=== PATIENT | male | born 1965 | race African-American/Black ===

== ENCOUNTER 2019-09-17 20:04 | Inpatient (IN) | payer OTHER, SELFPAY ==
--- OUTSIDE RECORDS SUMMARY | 2019-09-17 20:07 | XMS REPORT | Continuity of Care Document ---
:1965 Author Organization [facility] t Address [address] [place] [address] [place] [id number] Care Team Providers Name Role Phone Unavailable Unavailable Unavailable Problems This patient has no known problems. Allergies, Adverse Reactions, Alerts This patient has no known allergies or adverse reactions. Medications This patient has no known medications. Procedures This patient has no known procedures. Encounters Start End Encounter Admission Attending Care Care Encounter Source Date/Time Date/Time Type Type Clinicians Facility Department ID 2017-03-06 2017-03-06 Outpatient [facility] [id number] [address] [place] 02:15:01 02:15:01 [facility] Office 2016-10-02 2016-10-02 Outpatient [facility] [id number] [address] [place] [address] 00:00:00 00:00:00 [facility] Results This patient has no known results.
[2019-09-17] MEDS ORDERED: CLOPIDOGREL 75 MG TABLET ONE (20:48)
[2019-09-17 20:51] LABS: Absolute Lymphocytes (CBC) 2.6 K/uL (0.7-4.9); Basophils % 1.3 % (0-1.3); Hematocrit 39.4 % (39.6-49.0); Lymphocytes % 37.7 % (15.3-44.8); MPV 8.8 fL (7.6-11.3); RBC Red Blood Cell Count 5.31 M/uL (4.33-5.43)
[2019-09-17 20:52] LABS: Protime INR 1.1
--- NOTE | 2019-09-17 21:01 | RAD REPORT ---
EXAM DESCRIPTION: RAD - Chest Single View - 09/17/2019 8:37 pm CLINICAL HISTORY: CHEST PAIN Chest pain. COMPARISON: No comparisons FINDINGS: Portable technique limits examination quality. The lungs are grossly clear. The heart is normal in size. No displaced fractures. IMPRESSION: No acute intrathoracic process suspected.
[2019-09-17 21:02] LABS: ALT/SGPT 19 U/L (12-78); AST/SGOT 15 U/L (15-37); Albumin 3.7 g/dL (3.4-5.0); Alkaline Phosphatase 83 U/L (45-117); BUN Blood Urea Nitrogen 12 mg/dL (7-18); Bicarbonate 27 mmol/L (21-32); Bilirubin Direct < 0.1 mg/dL (0-0.2); Bilirubin Total 0.2 mg/dL (0.2-1.0); Glucose Level 79 mg/dL (74-106); Magnesium 2.4 mg/dL (1.8-2.4); NT PRO-BNP 40 pg/mL (<125); Potassium 4.3 mmol/L (3.5-5.1); Protein, Total 7.7 g/dL (6.4-8.2); Sodium Level 139 mmol/L (136-145); Troponin (Emerg Dept Use Only) < 0.02 ng/mL (0.0-0.045)
--- NOTE | 2019-09-17 21:21 | EDPHYS ---
Physician Documentation [facility] Name: Gee Mills Age: 53 yrs Sex: Male : 1965 Arrival Date: 09/17/2019 Time: 20:11 Bed 5 Private MD: ED Physician Nando Bello HPI: 09/16 20:22 This 53 yrs old Black Male presents to ER via Unassigned with complaints of Chest Pain. cp 20:22 The patient or guardian reports chest pain that is located primarily in the substernal cp area. 20:22 Onset: suddenly, today. The pain does not radiate. The chest pain is described as worse cp than previous heart attack pain. Duration: The patient or guardian reports a single episode, that is now resolved. Severity of pain: in the emergency department the pain has resolved. EMS care prior to arrival includes: nitroglycerin, x 2. Patient reports history of ND due to drug use in past. No stents placed, no history of CABG. Historical: - Allergies: 20:11 Aspirin; jb4 - Home Meds: 20:11 amlodipine 10 mg tab [Active]; Hydrochlorothiazide Oral [Active]; jb4 - PMHx: 20:11 Hypertension; Blood clots in the right leg; C5 and C5 fractures; jb4 - PSHx: 20:11 right hand; jb4 - Immunization history:: Adult Immunizations up to date. - Social history:: Smoking status: Patient reports the use of cigarette tobacco products, smokes one-half pack cigarettes per day, Patient/guardian denies using alcohol, street drugs, but used to use street drugs. ROS: 20:25 Cardiovascular: Positive for chest pain, Negative for edema, palpitations. cp 20:25 Eyes: Negative for injury, pain, redness, and discharge. cp 20:25 Constitutional: Negative for body aches, chills, poor PO intake. 20:25 ENT: Negative for ear pain, sore throat, difficulty swallowing, difficulty handling secretions. 20:25 Neck: Negative for pain with movement, pain at rest, stiffness. 20:25 Respiratory: Negative for cough, shortness of breath, wheezing. 20:25 Abdomen/GI: Negative for abdominal pain, nausea, vomiting, and diarrhea. 20:25 Back: Negative for radiated pain. 20:25 Neuro: Negative for altered mental status, dizziness, syncope, weakness. 20:25 All other systems are negative. Exam: 20:23 ECG was reviewed by the Attending Physician. cp 20:28 Constitutional: The patient appears in no acute distress, alert, awake, cp non-diaphoretic, non-toxic, well developed, well nourished. 20:28 Head/Face: Normocephalic, atraumatic. cp 20:28 Eyes: Periorbital structures: appear normal, Conjunctiva: normal, no exudate, no injection, Sclera: no appreciated abnormality, Lids and lashes: appear normal, bilaterally. 20:28 ENT: External ear(s): are unremarkable, Nose: is normal, Mouth: Lips: moist, Oral mucosa: pink and intact, moist, Posterior pharynx: is normal, airway is patent, no erythema, no exudate. 20:28 Neck: ROM/movement: is normal, is supple, without pain, no range of motions limitations, no nuchal rigidity. 20:28 Chest/axilla: Inspection: normal, Palpation: crepitus, is not appreciated, tenderness, is not appreciated. 20:28 Cardiovascular: Rate: normal, Rhythm: regular, Pulses: Pulses are 2+ in right radial artery and left radial artery. Edema: is not appreciated, JVD: is not appreciated. 20:28 Respiratory: the patient does not display signs of respiratory distress, Respirations: normal, no use of accessory muscles, no retractions, labored breathing, is not present, Breath sounds: are clear throughout, no decreased breath sounds, no stridor, no wheezing. 20:28 Abdomen/GI: Inspection: abdomen appears normal, Bowel sounds: active, all quadrants, Palpation: abdomen is soft and non-tender, in all quadrants. 20:28 Back: pain, is absent, ROM is normal. 20:28 Neuro: Orientation: is normal, Mentation: is normal, Motor: moves all fours, strength is normal, Sensation: is normal. Vital Signs: 20:11 BP 164 / 117; Pulse 73; Resp 12; Temp 98.4(O); Pulse Ox 100% on R/A; Weight 77.11 kg jb4 (R); Height 5 ft. 7 in. (170.18 cm) (R); Pain 4/10; 21:00 BP 135 / 91; Pulse 79; Resp 23; Pulse Ox 100% on R/A; jb4 22:00 BP 110 / 67; Pulse 63; Resp 16; Pulse Ox 100% on R/A; jb4 23:00 BP 109 / 68; Pulse 65; Resp 20; Pulse Ox 98% on R/A; jb4 23:45 BP 93 / 53; Pulse 54; Resp 19; Pulse Ox 98% on R/A; rv 20:11 Body Mass Index 26.63 (77.11 kg, 170.18 cm) jb4 MDM: 20:15 Patient medically screened. cp 21:00 Differential diagnosis: abnormal EKG, acute myocardial infarction, acute pericarditis, cp costochondritis, pulmonary embolus, stable angina, thoracic aortic disection, unstable angina. 21:20 The patient was not given aspirin in the Emergency Department. Not indicated due to cp patient's past medical history. 21:20 HEART Score: History: Moderately Suspicious (1), ECG: Normal (0), Age: > 45 and < 65 cp years (1), Risk Factors: 1 or 2 risk factors (1), [Hypertension]. Data reviewed: vital signs, nurses notes, lab test result(s), EKG, radiologic studies, plain films. Test interpretation: by ED physician or midlevel provider: ECG, chest xray negative for infiltrates. Physician consultation: Syed Pelletier MD was called at 21:20, was contacted at 21:20, regarding admission, to the telemetry unit. patient's condition. 09/16 20:16 Order name: Basic Metabolic Panel; Complete Time: 21:03 cp 09/16 20:16 Order name: CBC with Diff; Complete Time: 21:03 cp 09/16 20:16 Order name: LFT's; Complete Time: 21:03 cp 09/16 20:16 Order name: Magnesium; Complete Time: 21:03 cp 09/16 20:16 Order name: NT PRO-BNP; Complete Time: 21:03 cp 09/16 20:16 Order name: PT-INR; Complete Time: 21:03 cp 09/16 20:16 Order name: Troponin (emerg Dept Use Only); Complete Time: 21:03 cp 09/16 21:20 Order name: UDS 09/16 22:32 Order name: Basic Metabolic Panel EDLA 09/16 22:32 Order name: Basic Metabolic Panel EDLA 09/16 22:32 Order name: Creatine Phosphokinase EDLA 09/16 22:32 Order name: Creatine Phosphokinase EDLA 09/16 22:32 Order name: Creatine Phosphokinase EDLA 09/16 22:32 Order name: Creatine Phosphokinase EDLA 09/16 20:16 Order name: XRAY Chest (1 view) cp 09/16 20:16 Order name: EKG; Complete Time: 20:17 cp 09/16 21:22 Order name: Diet Regular; Complete Time: 21:23 cp 09/16 22:32 Order name: Lipid Profile EDLA 09/16 22:32 Order name: Lipid Profile EDLA 09/16 22:33 Order name: Troponin I EDLA 09/16 22:34 Order name: CONS Physician Consult EDLA 09/16 22:34 Order name: Heart Healthy EDLA 09/16 22:34 Order name: Echo with Doppler EDLA 09/16 22:34 Order name: CBC with Automated Diff EDLA 09/16 22:34 Order name: CBC with Automated Diff EDLA 09/16 22:35 Order name: PTT, Activated Partial Thromb EDLA 09/16 22:35 Order name: PTT, Activated Partial Thromb EDLA 09/16 22:35 Order name: Troponin I EDLA 09/16 22:35 Order name: Troponin I EDLA 09/16 20:16 Order name: Cardiac monitoring; Complete Time: 20:29 cp 09/16 20:16 Order name: EKG - Nurse/Tech; Complete Time: 20:29 cp 09/16 20:16 Order name: IV Saline Lock; Complete Time: 20:29 cp 09/16 20:16 Order name: Labs collected and sent; Complete Time: 20:42 cp 09/16 20:16 Order name: O2 Per Protocol; Complete Time: 20:29 cp 09/16 20:16 Order name: O2 Sat Monitoring; Complete Time: 20:29 cp 09/16 20:16 Order name: Blood Pressure Recheck: bilateral upper extremity; Complete Time: 20:29 cp 09/16 22:34 Order name: EKG Electrocardiogram EDLA 09/16 22:34 Order name: EKG Electrocardiogram EDLA EC:23 Rate is 67 beats/min. Rhythm is regular. [place] interval is normal. QRS interval is normal. cp QT interval is normal. Interpreted by me. Reviewed by me. Administered Medications: 20:44 Drug: PlaVIX 300 mg Route: PO; jb4 21:30 Follow up: Response: No adverse reaction jb4 Disposition: 09/17 05:27 Co-signature as Attending Physician, Nando Bello MD. pkl Disposition: 09/17/19 21:21 Hospitalization ordered by Syed Pelletier for Observation. Preliminary diagnosis is Chest pain, unspecified. - Bed requested for Telemetry/MedSurg (observation). - Status is Observation. jb4 - Condition is Stable. - Problem is new. - Symptoms have improved. Signatures: Dispatcher [employer] EDMS Nando Bello MD MD pkl Tom Baxter PA PA cp Roberta Fabian, RN RN cg Yuri Cortez RN RN jb4 Corrections: (The following items were deleted from the chart) 09/16 23:13 21:21 Hospitalization Ordered by Syed Pelletier MD for Observation. Preliminary cg diagnosis is Chest pain, unspecified. Bed requested for Telemetry/MedSurg (observation). Status is Observation. Condition is Stable. Problem is new. Symptoms have improved. 09/17 00:06 09/16 23:13 09/17/2019 21:21 Hospitalization Ordered by Syed Pelletier MD for jb4 Observation. Preliminary diagnosis is Chest pain, unspecified. Bed requested for Telemetry/MedSurg (observation). Status is Observation. Condition is Stable. Problem is new. Symptoms have improved. cg
--- NOTE | 2019-09-17 21:21 | ER ---
Nurse's Notes [facility] Name: Gee Mills Age: 53 yrs Sex: Male : 1965 Arrival Date: 09/17/2019 Time: 20:11 Bed 5 Private MD: Diagnosis: Chest pain, unspecified Presentation: 09/16 20:11 Chief complaint: EMS states: PT reports mid sternal chest pain that began 3-4 days ago. jb4 He was hypertensive on scene with a blood pressure of 170/100. Reports being non-compliant with blood pressure medication. Was given 1 of nitro sublingual on scene. Brought chest pain to /, had no effect on pressure. 20:11 Coronavirus screen: Proceed with normal triage. Ebola Screen: No symptoms or risks jb4 identified at this time. Initial Sepsis Screen: Does the patient meet any 2 criteria? No. Patient's initial sepsis screen is negative. Does the patient have a suspected source of infection? No. Patient's initial sepsis screen is negative. Risk Assessment: Do you want to hurt yourself or someone else? Patient reports no desire to harm self or others. Onset of symptoms was September 13, 2019. Transition of care: patient was not received from another setting of care. 20:11 Method Of Arrival: EMS: [facility] jb4 20:11 Acuity: [place] 3 jb4 20:11 Care prior to arrival: Medication(s) given: Nitroglycerin, 0.4 mg SL x 1, IV initiated. jb4 18 GA, in the left antecubital area. Historical: - Allergies: 20:11 Aspirin; jb4 - Home Meds: 20:11 amlodipine 10 mg tab [Active]; Hydrochlorothiazide Oral [Active]; jb4 - PMHx: 20:11 Hypertension; Blood clots in the right leg; C5 and C5 fractures; jb4 - PSHx: 20:11 right hand; jb4 - Immunization history:: Adult Immunizations up to date. - Social history:: Smoking status: Patient reports the use of cigarette tobacco products, smokes one-half pack cigarettes per day, Patient/guardian denies using alcohol, street drugs, but used to use street drugs. Screenin:11 Abuse screen: Denies threats or abuse. Nutritional screening: No deficits noted. jb4 Tuberculosis screening: No symptoms or risk factors identified. Fall Risk None identified. Assessment: 20:11 General: Appears in no apparent distress. comfortable, Behavior is calm, cooperative, jb4 appropriate for age. Pain: Complains of pain in xyphoid area Pain does not radiate. Pain currently is 4 out of 10 on a pain scale. Quality of pain is described as stabbing, Pain began 3-4 days ago. Pt reports that when pain initially started, it radiated to his left arm and caused numbness. Pain is no longer radiating. Is continuous. Neuro: Level of Consciousness is awake, alert, obeys commands, Oriented to person, place, time, situation. Cardiovascular: Patient's skin is warm and dry. Rhythm is sinus rhythm. Respiratory: Airway is patent Respiratory effort is even, unlabored, Respiratory pattern is regular, symmetrical. GI: No signs and/or symptoms were reported involving the gastrointestinal system. : No signs and/or symptoms were reported regarding the genitourinary system. EENT: No signs and/or symptoms were reported regarding the EENT system. Derm: Skin is intact, Skin is dry, Skin is normal, Skin temperature is warm. Musculoskeletal: Circulation, motion, and sensation intact. Range of motion: intact in all extremities. 21:00 Reassessment: Patient appears in no apparent distress at this time. Patient and/or jb4 family updated on plan of care and expected duration. Pain level reassessed. Patient is alert, oriented x 3, equal unlabored respirations, skin warm/dry/pink. 22:00 Reassessment: Patient appears in no apparent distress at this time. Patient and/or jb4 family updated on plan of care and expected duration. Pain level reassessed. Patient is alert, oriented x 3, equal unlabored respirations, skin warm/dry/pink. 22:57 Reassessment: Patient appears in no apparent distress at this time. Patient and/or jb4 family updated on plan of care and expected duration. Pain level reassessed. PT is resting in bed with eyes closed. Respirations are even and unlabored. No s/s of pain or distress noted. 09/17 00:00 Reassessment: Patient appears in no apparent distress at this time. Patient and/or jb4 family updated on plan of care and expected duration. Pain level reassessed. Patient is alert, oriented x 3, equal unlabored respirations, skin warm/dry/pink. Vital Signs: 09/16 20:11 BP 164 / 117; Pulse 73; Resp 12; Temp 98.4(O); Pulse Ox 100% on R/A; Weight 77.11 kg jb4 (R); Height 5 ft. 7 in. (170.18 cm) (R); Pain 4/10; 21:00 BP 135 / 91; Pulse 79; Resp 23; Pulse Ox 100% on R/A; jb4 22:00 BP 110 / 67; Pulse 63; Resp 16; Pulse Ox 100% on R/A; jb4 23:00 BP 109 / 68; Pulse 65; Resp 20; Pulse Ox 98% on R/A; jb4 23:45 BP 93 / 53; Pulse 54; Resp 19; Pulse Ox 98% on R/A; rv 20:11 Body Mass Index 26.63 (77.11 kg, 170.18 cm) jb4 ED Course: 20:11 Patient arrived in ED. lp1 20:11 Arm band placed on right wrist. jb4 20:11 Patient has correct armband on for positive identification. Placed in gown. Bed in low jb4 position. Call light in reach. Side rails up X 1. monitoring and evaluation advisor on. Pulse ox on. NIBP on. 20:11 Maintain EMS IV. Dressing intact. Good blood return noted. Site clean \T\ dry. Gauge \T\ ernesto 4 site: 18g LAC. Patient maintains SpO2 saturation greater than 95% on room air. 20:12 Tom Baxter PA is PHCP. cp 20:12 Nando Bello MD is Attending Physician. cp 20:23 Yuri Cortez RN is Primary Nurse. jb4 20:26 Triage completed. jb4 20:37 XRAY Chest (1 view) In Process Unspecified. EDMS 21:20 Syed Pelletier MD is Hospitalizing Provider. cp 09/17 00:00 No provider procedures requiring assistance completed. Patient admitted, IV remains in jb4 place. Administered Medications: 09/16 20:44 Drug: PlaVIX 300 mg Route: PO; jb4 21:30 Follow up: Response: No adverse reaction jb4 Outcome: 21:21 Decision to Hospitalize by Provider. cp 09/17 00:00 Admitted to Tele accompanied by nurse, via wheelchair, room 425, with chart, Report jb4 called to LEIDA Patton Condition: stable Discharge instructions given to patient, Instructed on the need for admit, Demonstrated understanding of instructions. 00:06 Patient left the ED. jb4 Signatures: Dispatcher [employer] EDSharon Rdz, RN RN lp1 Tom Baxter PA PA cp Bryson, James, RN RN jb4 Gerald Renae RN RN rv
[2019-09-17] MEDS ORDERED: ALPRAZOLAM 0.25 MG TABLET PO PRN (22:27)
[2019-09-17] MEDS ORDERED: ACETAMINOPHEN 500 MG TAB PO PRN (22:27)
[2019-09-17] MEDS ORDERED: MORPHINE 4 MG/ML SYR IV PRN (22:27)
[2019-09-18 00:24] VITALS: BMI 25.0
[2019-09-18] MEDS: METOPROLOL TAR 50 MG TAB PO SCH ×2 (06:00→08:33)
[2019-09-18 06:15] LABS: Absolute Lymphocytes (CBC) 2.4 K/uL (0.7-4.9); Basophils % 1.3 % (0-1.3); Hematocrit 38.3 % (39.6-49.0); MPV 8.8 fL (7.6-11.3); RBC Red Blood Cell Count 5.23 M/uL (4.33-5.43)
[2019-09-18 06:28] LABS: Potassium 3.7 mmol/L (3.5-5.1)
[2019-09-18 08:31] LABS: Barbiturates NEGATIVE (NEGATIVE); Benzodiazepines NEGATIVE (NEGATIVE); Cocaine NEGATIVE (NEGATIVE); METHAMPHETAM NEGATIVE (NEGATIVE); Methadone NEGATIVE (NEGATIVE); Opiates NEGATIVE (NEGATIVE); Phencyclidine NEGATIVE (NEGATIVE); THC Cannibis NEGATIVE (NEGATIVE)
[2019-09-18] MEDS ORDERED: ASPIRIN EC 81 MG TAB PO SCH (09:00)
[2019-09-18] MEDS ORDERED: ENOXAPARIN 40 MG/0.4 ML SQ SCH (09:00)
[2019-09-18] MEDS ORDERED: REGADENOSON 0.4 MG/5 ML SYR IV ONE (10:20)
--- NOTE | 2019-09-18 11:18 | RAD REPORT ---
EXAM DESCRIPTION: NM - Rest Stress Cardiac Imaging - 09/18/2019 11:12 am CLINICAL HISTORY: CP Chest pain. COMPARISON: No comparisons TECHNIQUE: The patient was administered approximately 10mCi of Tc 99m Sestamibi prior to resting SPE CT imaging of the heart. The patient was then administered approximately 30 mCi of Tc 99m Sestamibi f ollowing exercise or pharmacologic stress. Multiplanar SPECT images were reviewed. FINDINGS: No stress induced ischemic defect is seen to suggest stress induced ischemia. No fixed def ect is seen to suggest hibernating myocardium or scarred myocardium. The end diastolic volume is 87 ml, the end systolic volume is 36 ml, and the ejection fraction is 58 %. IMPRESSION: No stress induced ischemia.
[2019-09-18 12:00] VITALS: O2SAT 99
[2019-09-18 12:07] VITALS: BP 104/59; TEMP 98
--- NOTE | 2019-09-18 12:40 | P.DS ---
Admission Date: 09/17/19 Discharge Date: 09/18/19 Primary Care Provider: none Disposition: ROUTINE DISCHARGE Discharge Condition: GOOD Reason for Admission: Chest pain Consultations: none Procedures: CXR: Unremarkable Cardiac Stress test: FINDINGS: No stress induced ischemic defect is seen to suggest stress induced ischemia. No fixed defect is seen to suggest hibernating myocardium or scarred myocardium. The end diastolic volume is 87 ml, the end systolic volume is 36 ml, and the ejection fraction is 58 %. IMPRESSION: No stress induced ischemia. Medical Problem List: Chest pain likely atypical with normal cardiac stress test suspect musculoskeletal Hypertension Chronic back pain Brief History of Present Illness: 53-year-old male presented to the emergency room with chest pain. Patient was admitted for further evaluation and treatment. Hospital Course: Patient presented with chest pain. Patient with underlying history of hypertension and chronic pain. Patient reported lifting a water heater and doing some extra work at home. Patient came to the ER for further evaluation. Initial cardiac enzymes unremarkable. Cardiac stress test performed. No stress-induced ischemia noted. Chest pain likely musculoskeletal in nature. Recommend no further heavy lifting, pushing or pulling. Patient may take Tylenol as needed for pain. Recommend follow up with PCP in 1 week to follow up this hospitalization. Patient with underlying hypertension. This has remained stable. At discharge he will continue with his regular medication of Norvasc 10 mg daily. Recommend to maintain blood pressure less 150/80. Further adjustment can be done by his PCP. Patient may have underlying GERD. At discharge patient may use Pepcid 20 mg twice daily. GERD education will be provided. Patient reports history of chronic back pain. Recommend follow up with pain management and neuro surgery to further evaluate. This can be done as an outpatient. Vital Signs/Physical Exam: Temp Pulse Resp BP Pulse Ox 98.0 F 55 17 104/59 L 99 09/18/19 12:00 09/18/19 12:00 09/18/19 12:00 09/18/19 12:09/18/19 12:00 General: Alert, In no apparent distress, Oriented x3, Cooperative HEENT: Atraumatic Neck: Supple Respiratory: Clear to auscultation bilaterally, Normal air movement Cardiovascular: Normal pulses, Regular rate/rhythm Gastrointestinal: Normal bowel sounds, Soft and benign, Non-distended, No tenderness, No masses, No rebound, No guarding Musculoskeletal: No erythema, No tenderness, No warmth Integumentary: No tenderness/swelling, No erythema, No warmth, No cyanosis Neurological: Normal speech, Normal strength at 5/5 x4 extr, Normal tone, Normal affect Other Physical/Emotional Findings: Review of systems unremarkable. Laboratory Data at Discharge: WBC 6.2 K/uL (4.3-10.9) 09/18/19 05:51 Hgb 12.7 g/dL (13.6-17.9) L 09/18/19 05:51 Hct 38.3 % (39.6-49.0) L 09/18/19 05:51 Plt Count 227 K/uL (152-406) 09/18/19 05:51 PT 13.0 SECONDS (9.5-12.5) H 09/17/19 20:30 INR 1.10 09/17/19 20:30 APTT 30.1 SECONDS (24.3-36.9) 09/18/19 05:51 Sodium 141 mmol/L (136-145) 09/18/19 05:51 Potassium 3.7 mmol/L (3.5-5.1) 09/18/19 05:51 BUN 11 mg/dL (7-18) 09/18/19 05:51 Creatinine 1.16 mg/dL (0.55-1.3) 09/18/19 05:51 Glucose 107 mg/dL (74-106) H 09/18/19 05:51 Magnesium 2.4 mg/dL (1.8-2.4) 09/17/19 20:30 Total Bilirubin 0.2 mg/dL (0.2-1.0) 09/17/19 20:30 AST 15 U/L (15-37) 09/17/19 20:30 ALT 19 U/L (12-78) 09/17/19 20:30 Alkaline Phosphatase 83 U/L (45-117) 09/17/19 20:30 Troponin I < 0.02 ng/mL (0.0-0.045) 09/18/19 07:18 Triglycerides Cancelled 09/18/19 06:00 Cholesterol Cancelled 09/18/19 06:00 HDL Cholesterol Cancelled 09/18/19 06:00 Cholesterol/HDL Ratio Cancelled 09/18/19 06:00 Home Medications: Amlodipine [Norvasc*] 10 mg PO DAILY #30 tab 09/18/19 New Medications: Amlodipine [Norvasc*] 10 mg PO DAILY #30 tab Patient Discharge Instructions: 1. Recommend follow up with PCP to establish care. 2. Patient presented with chest pain. Patient with underlying history of hypertension and chronic pain. Patient reported lifting a water heater and doing some extra work at home. Patient came to the ER for further evaluation. Initial cardiac enzymes unremarkable. Cardiac stress test performed. No stress-induced ischemia noted. Chest pain likely musculoskeletal in nature. Recommend no further heavy lifting, pushing or pulling. Patient may take Tylenol as needed for pain. Recommend follow up with PCP in 1 week to follow up this hospitalization. 3. Patient with underlying hypertension. This has remained stable. At discharge he will continue with his regular medication of Norvasc 10 mg daily. Recommend to maintain blood pressure less 150/80. Further adjustment can be done by his PCP. 4. Patient may have underlying GERD. At discharge patient may use Pepcid 20 mg twice daily. GERD education will be provided. 5. Patient reports history of chronic back pain. Recommend follow up with pain management and neuro surgery to further evaluate. This can be done as an outpatient. Diet: AHA Activity: No lifting more than 10 lbs Time spent managing pt's care (in minutes): 55
--- NOTE | 2019-09-18 15:30 | P.HP ---
Certification for Inpatient Patient admitted to: Observation With expected LOS: <2 Midnights Patient will require the following post-hospital care: None Practitioner: I am a practitioner with admitting privileges, knowledge of patient current condition, hospital course, and medical plan of care. Services: Services provided to patient in accordance with Admission requirements found in Title 42 Section 412.3 of the Code of Federal Regulations Patient History Date of Service: 09/17/19 Reason for admission: Chest pain History of Present Illness: Patient is a 53-year-old gentleman who came to the hospital with chest discomfort. Pain was mainly the sternal region. Patient states it happened prior to going to bed. His pain continued and because he has a history of heart disease he decided to come into the emergency room for further evaluation. In the emergency room patient was given nitro which relieved his pain. He was admitted to the hospital for further evaluation. Patient has not seen his girl friday in quite a while. Patient will be admitted to the hospital for further evaluation. Allergies aspirin Allergy (Verified 09/18/19 00:21) Itching/Hives/Rash lisinopril Allergy (Verified 09/18/19 00:45) Anaphylaxis cyclobenzaprine [From Flexeril] Adverse Reaction (Verified 09/18/19 00:45) Itching/Hives/Rash Home Medications: Amlodipine [Norvasc*] 10 mg PO DAILY #30 tab 09/18/19 - Past Medical/Surgical History Diabetic: No -: HTN -: coronary artery disease - Family History Mother Medical History: Heart disease, Diabetes, Other (see notes) Notes: dementia - Social History Smoking Status: Never smoker Alcohol use: No CD- Drugs: No Caffeine use: Yes Place of Residence: Home Review of Systems 10-point ROS is otherwise unremarkable Physical Examination - Vital Signs Temperature: 98.0 F Blood Pressure: 104/59 Pulse: 55 Respirations: 17 Pulse Ox (%): 99 - Physical Exam General: Alert, In no apparent distress, Oriented x3 HEENT: Atraumatic, PERRLA, Mucous membr. moist/pink, EOMI, Sclerae nonicteric Neck: Supple, 2+ carotid pulse no bruit, No LAD, Without JVD or thyroid abnormal ity Respiratory: Clear to auscultation bilaterally, Normal air movement Cardiovascular: Regular rate/rhythm, Normal S1 S2, No murmurs Gastrointestinal: Normal bowel sounds, Soft and benign, Non-distended, No tenderness Musculoskeletal: No clubbing, No swelling, No tenderness Integumentary: No rashes Neurological: Normal gait, Normal speech, Normal strength at 5/5 x4 extr, Normal tone, Sensation intact, Cranial nerves 3-12 intact, Normal affect Lymphatics: No axilla or inguinal lymphadenopathy Other Physical/Emotional Findings: Review of systems unremarkable. - Studies Laboratory Data (last 24 hrs) 09/17/19 20:30: PT 13.0 H, INR 1.10 09/17/19 20:30: WBC 6.8, Hgb 12.9 L, Hct 39.4 L, Plt Count 225 09/17/19 20:30: Sodium 139, Potassium 4.3, BUN 12, Creatinine 1.24, Glucose 79, Magnesium 2.4, Total Bilirubin 0.2, AST 15, ALT 19, Alkaline Phosphatase 83 Assessment & Plan - Problems (Diagnosis) (1) Chest pain, rule out acute myocardial infarction Status: Acute (2) Coronary artery disease Status: Acute - Plan 1. Serial troponins and EKG 2. Cardiology consultation 3. Echocardiogram and inpatient stress test(pending cardiology evaluation) 4. Anti-platelet therapy, anti coagulation, beta-butch, statin, and O2 as needed 5. IV morphine for pain 6. Nitro p.r.n. Discharge Plan: Home Plan to discharge in: 24 Hours - Advance Directives Does patient have a Living Will: No Does patient have a Durable POA for Healthcare: No - Code Status/Comfort Care Code Status Assessed: Yes Code Status: Full Code Critical Care: No Time Spent Managing PTS Care (In Minutes): 40
--- NOTE | 2019-09-18 19:27 | EKG ---
Test Date: 2019-09-17 Test Time: 20:22:48 Data Security Consultant: BRET MEASUREMENT RESULTS: Intervals: Rate: 67 NE: 140 QRSD: 80 QT: 376 QTc: 397 Brady: P: 65 NE: 140 QRS: 60 T: 47 INTERPRETIVE STATEMENTS: Normal sinus rhythm Normal ECG No previous ECG available for comparison Electronically Signed On 09-18-19 19:24:08 CDT by Earl Prince
--- NOTE | 2019-09-19 00:12 | CON ---
Date of Consultation: 09/18/[address] Pelletier on 09/17/2019. I saw the patient on 09/18/2019. Reason For Consultation: Chest pain. History Of Present Illness: Mr. Mills is 53, was admitted to Dr. Pelletier's service on 09/17/2019, with chest pain. He describes the chest pain as mid sternal radiating to the back without any nausea, vom iting, diaphoresis, PND, orthopnea, pedal edema, palpitations, or syncope. He denied any fever or ch ills or cough. Workup so far has been negative including chest x-ray, EKG, troponin, BNP, CPK and MB s. Past Medical History: Includes hypertension and history of DVT at one point. Allergies: HE IS ALLERGIC TO ASPIRIN AND LISINOPRIL. Home Medications: None, although he is supposed to take Norvasc and hydrochlorothiazide. Review of Systems: Negative. Social History: Negative. Family History: Negative. Physical Examination: Vital Signs: Stable, he was afebrile. HEENT: Negative. Neck: Supple without any bruit, lymphadenopathy, JVD, or thyromegaly. Chest: Clear to auscultation and percussion. Cardiac: Revealed a regular rhythm and rate. No murmurs, gallops, or rubs. Abdomen: Benign. Extremities: Revealed no clubbing, cyanosis, or edema. Diagnostic Data: As stated earlier. Impression And Plan: Atypical chest pain more likely related to gastroesophageal reflux disease. Th e patient, however, has a history of hypertension and I think doing an echocardiogram and Lexiscan is reasonable. He is presently on Xanax, metoprolol, Lovenox, and aspirin and I agree with the therapy . We will see what his testing shows before making final decisions. Compliance with his medication need to be re-addressed. He should definitely get back on his Norvasc and hydrochlorothiazide for hy pertension. I will continue to follow him along. ISABELLA/PRECIOUS Voice ID: [id number] Report ID: [id number]
--- NOTE | 2019-09-19 08:37 | ECHO ---
HEIGHT: 5 ft 7 in WEIGHT: 159 lb 11.2 oz DATE OF STUDY: 09/18/[address]: Syed Pelletier MD 2-DIMENSIONAL: YES M.MODE: YES DOPPLER: YES COLOR FLOW: YES TDS: PORTABLE: DEFINITY: BUBBLE STUDY: DIAGNOSIS: CHEST PAIN CARDIAC HISTORY: CATHERIZATION: YES SURGERY: NO PROSTHETIC VALVE: NO PACEMAKER: NO MEASUREMENTS (cm) DIASTOLIC (NORMALS) SYSTOLIC (NORMALS) IVSd 1.0 (0.6-1.2) LA Diam 2.9 (1.9-4.0) LVEF 59% LVIDd 3.9 (3.5-5.7) LVIDs 2.7 (2.0-3.5) %FS 31% LVPWd 1.0 (0.6-1.2) Ao Diam 2.9 (2.0-3.7) 2 DIMENSIONAL ASSESSMENT: RIGHT ATRIUM: NORMAL LEFT ATRIUM: NORMAL RIGHT VENTRICLE: NORMAL LEFT VENTRICLE: NORMAL TRICUSPID VALVE: NORMAL MITRAL VALVE: NORMAL PULMONIC VALVE: NORMAL AORTIC VALVE: NORMAL PERICARDIAL EFFUSION: NONE AORTIC ROOT: NORMAL LEFT VENTRICULAR WALL MOTION: DOPPLER/COLOR FLOW: COMMENTS: NORMAL 2-DIMENSIONAL ECHOCARDIOGRAM WITH DOPPLER. NO WALL MOTION ABNORMALITY. NO EFFUSION. TECHNOLOGIST: MODESTA CHAUHAN
--- NOTE | 2019-09-19 08:39 | TREADPHA ---
DX: CHEST PAIN Date of Study: 09/18/2019 Ht: 5' 7 " Wt: 159 lb 11.2 oz Consulting Physician: ERICK MEDICATIONS: TYLENOL, XANAX, ASPIRIN, LOVENOX, LOPRESSOR HISTORY: HYPERTENSION, DEEP VEIN THROMBOSIS PHYSICIAL EXAMINATION: RESTING B.P.: 122/84 RESTING H.R.: 52 RESTING EKG: SINUS BRADYCARDIA PROTOCOL: PHARMACOLOGIC EXERCISE TIME: 3:30 B.P. AT PEAK STRESS: 120/76 IMPRESSION: INJECTED LEXICAN. CARDIOLITE INJECTED. NO CHEST PAIN. NO SUPRAVENTRICULAR TACHCYARDIA, VENTRICULAR TACHYCARDIA. NO PREMATURE VENTRICULAR COMPLEXES.
[2019-09-19] MEDS ORDERED: AMLODIPINE 10 MG TAB PO SCH ×2 (09:00)
== END 2019-09-18 13:35 | disposition home or self-care (01) | DRG 313 ==
LOC: ER 20:04 → ERHOLD 22:28 → OBSVTOIN 22:28 → 4TH 23:21
PROVIDERS: ADMIT Hospitalist; ATTEND Hospitalist
DX: R07.89 Other chest pain (principal); I10 Essential (primary) hypertension; I25.10 Atherosclerotic heart disease of native coronary artery without angina pectoris; G89.29 Other chronic pain; M54.9 Dorsalgia, unspecified; K21.9 Gastro-esophageal reflux disease without esophagitis; Z88.8 Allergy status to other drugs, medicaments and biological substances; Z79.899 Other long term (current) drug therapy
CPT/HCPCS: 36415; 71045; 78452; 80048; 80061; 80076; 80307; 82550; 83735; 83880; 84484; 85025; 85610; 85730; 93017; 93306; 99285; A9500; J1650; J2785